=== PATIENT | male | born 1985 | race Caucasian/White ===

== ENCOUNTER 2019-04-21 06:37 | Day surgery (SDC) | payer BC ==
[~2019-04-21 06:37] MED LIST: Lactated Ringers 1,000 ML IV SCH; Sodium Chloride 0.9% 2.5 ML Syringe FLUSH PRN
[2019-04-21] MEDS ORDERED: Propofol 200 MG/20 ML SDV ONE ×2 (07:13→08:37)
[2019-04-21] MEDS ORDERED: fentaNYL 100 MCG/2 ML SDV ONE (07:14)
[2019-04-21] MEDS ORDERED: Ketorolac 30 MG/ML SDV ONE (07:14)
[2019-04-21] MEDS ORDERED: Dexamethasone 4 MG/ML 5 ML MDV ONE (07:14)
[2019-04-21] MEDS ORDERED: Ondansetron 4 MG/2 ML SDV ONE (07:14)
[2019-04-21] MEDS ORDERED: Midazolam 1 MG/ML 2 ML SDV ONE (07:14)
[2019-04-21] MEDS ORDERED: Lidocaine 2% 5 ML SDV ONE (07:14)
--- NOTE | 2019-04-21 07:15 | PCM.PREANE ---
Preanesthetic Assessment - Anesthesia/Transfusion/Family Hx Anesthesia History: No Prior Anesthesia Family History of Anesthesia Reaction: No Transfusion History: No Prior Transfusion(s) Intubation History: Unknown - Review of Systems General: No Symptoms Pulmonary: No Symptoms Cardiovascular: No Symptoms Gastrointestinal: Abdominal Pain Neurological: No Symptoms Other: Reports: None - Physical Assessment Vital Signs: Last Vital Signs Temp 36.6 C 04/21/19 07:01 Pulse 80 04/21/19 07:01 Resp 16 04/21/19 07:01 BP 140/93 H 04/21/19 07:01 Pulse Ox 97 04/21/19 07:01 Height: 5 ft 9 in Weight: 129.274 kg ASA Class: 2 Mental Status: Alert & Oriented x3 Airway Class: Mallampati = 3 Dentition: Reports: Normal Dentition Thyro-Mental Finger Breadths: 3 Mouth Opening Finger Breadths: 3 ROM/Head Extension: Full Lungs: Clear to Auscultation, Normal Respiratory Effort Cardiovascular: Regular Rate, Regular Rhythm - Allergies Allergies/Adverse Reactions: Allergies Allergy/AdvReac Type Severity Reaction Status Date / Time No Known Allergies Allergy Verified 04/18/19 10:21 - Blood Blood Available: No - Anesthesia Plan Pre-Op Medication Ordered: None - Acknowledgements Anesthesia Type Planned: General Anesthesia Pt an Appropriate Candidate for the Planned Anesthesia: Yes Alternatives and Risks of Anesthesia Discussed w Pt/Guardian: Yes Pt/Guardian Understands and Agrees with Anesthesia Plan: Yes PreAnesthesia Questionnaire HEENT History: Reports: Other (See Below) Other HEENT History: wears glasses Other Cardiovascular History: has been hypertensive in the past- no medications Musculoskeletal History: Reports: Back Pain, Chronic, Fracture Other Musculoskeletal History: hx of fx wrist Psychiatric History: Reports: Anxiety Other Psychiatric History: currently not taking any medication Endocrine/Metabolic History: Reports: Obesity/BMI 30+ (BMI 42.1) - SUBSTANCE USE Smoking Status *Q: Never Smoker Days Per Week of Alcohol Use: 5 Number of Drinks Per Day: 2 Total Drinks Per Week: 10 Recreational Drug Use History: No - HOME MEDS Home Medications: Home Meds . [No Known Home Meds] 04/18/19 [History] - CURRENT (IN HOUSE) MEDS Current Meds: Current Medications Lactated Ringer's (Ringers, Lactated) 1,000 mls @ 125 mls/hr IV ASDIRECTED SHARMILA Last Admin: 04/21/19 07:06 Dose: 125 mls/hr Sodium Chloride (Saline Flush) 10 ml FLUSH ASDIRECTED PRN PRN Reason: Keep Vein Open Sodium Chloride (Saline Flush) 2.5 ml FLUSH ASDIRECTED PRN PRN Reason: Keep Vein Open
[2019-04-21] MEDS ORDERED: ePHEDrine 50 MG/ML SDV ONE (09:03)
[2019-04-21] MEDS ORDERED: Lactated Ringers 1,000 ML IV SCH (09:30)
--- NOTE | 2019-04-21 09:32 | PCM.OPNOTE ---
- General Post-Op/Procedure Note Date of Surgery/Procedure: 04/21/19 Operative Procedure(s): Colonoscopy with cecal biopsy and cold transverse colon polypectomy Pre Op Diagnosis: Change in bowel habits. Rectal bleeding. Family history of colon cancer. Post-Op Diagnosis: Cecal angiodysplasia. Transverse colon polyp. Anesthesia Technique: General ET Tube (ASA III) Primary Surgeon: Hamilton Boyce Condition: Good Free Text/Narrative:: DICTATION 620368 CPT CODE 21996
--- NOTE | 2019-04-21 10:10 | PCM.POSTAN ---
POST ANESTHESIA ASSESSMENT - MENTAL STATUS Mental Status: Alert - VITAL SIGNS Vital Signs: Last Vital Signs Temp 36.8 C 04/21/19 09:21 Pulse 83 04/21/19 10:01 Resp 9 L 04/21/19 10:01 BP 115/60 04/21/19 10:01 Pulse Ox 98 04/21/19 10:01 - RESPIRATORY Respiratory Status: Respiratory Rate WNL, Airway Patent, O2 Saturation Stable - CARDIOVASCULAR CV Status: Pulse Rate WNL, Blood Pressure Stable - GASTROINTESTINAL GI Status: No Symptoms - PAIN Pain Score: 2 (Pt reports new onset of L arm pain when raising arm. No obvious injury. Pt states it is only when raising his arm and occurs from the shoulder down. Heart rate/rhythm normal sinus. Will observe as pt progresses through recovery and reassess prior to discharge home.) - POST OP HYDRATION Hydration Status: Adequate & Stable
--- NOTE | 2019-04-21 10:35 | PCM48HPAN ---
Post Anesthesia Note - EVALUATION WITHIN 48HRS OF ANESTHETIC Vital Signs in Normal Range: Yes Patient Participated in Evaluation: Yes Respiratory Function Stable: Yes Airway Patent: Yes Cardiovascular Function Stable: Yes Hydration Status Stable: Yes Pain Control Satisfactory: Yes Nausea and Vomiting Control Satisfactory: Yes Mental Status Recovered: Yes Vital Signs: Last Vital Signs Temp 36.4 C 04/21/19 10:10 Pulse 80 04/21/19 10:30 Resp 16 04/21/19 10:30 BP 124/70 04/21/19 10:30 Pulse Ox 97 04/21/19 10:30 - COMMENTS/OBSERVATIONS Free Text/Narrative:: no anesthesia problems
--- NOTE | 2019-04-21 10:54 | OR ---
SURGEON: Earl Patino M.D. DATE OF PROCEDURE: 04/21/2019 PREOPERATIVE DIAGNOSIS: Microscopic hematuria. POSTOPERATIVE DIAGNOSIS: Microscopic hematuria. OPERATION: Cystoscopy. FINDINGS: Normal cystourethroscopy. DESCRIPTION OF PROCEDURE: The patient was given general anesthesia. He is in dorsal lithotomy position, prepped and draped in sterile drapes. The 22-Thai cystoscope was introduced in the bladder under vision without difficulty. The inside of the bladder was examined, was normal. Efflux from both ureteral orifices was clear. The bladder was emptied. The urethra was visualized on the way out and that was again normal. The patient tolerated the procedure well and was moved to recovery room in good condition. VALENTINO / KATRIN /[id number]
[2019-04-21] MEDS ORDERED: Sodium Chloride 0.9% 10 ML Syringe FLUSH PRN (14:26)
--- NOTE | 2019-04-21 15:53 | OR ---
SURGEON: Hamilton Boyce M.D. DATE OF PROCEDURE: 04/21/2019 OPERATION PERFORMED: Colonoscopy with cecal biopsy and cold proximal transverse colon polypectomy. PRIMARY SURGEON: Hamilton Boyce M.D. ANESTHESIA: General endotracheal ASA CLASSIFICATION: III. PREOPERATIVE DIAGNOSES: 1. Change in bowel habits. 2. Rectal bleeding. 3. Family history of colon cancer. POSTOPERATIVE DIAGNOSES: 1. Mild angiodysplasia of the cecum. 2. Transverse colon polyp. DESCRIPTION OF PROCEDURE: After completing cystoscopy by Dr. Paitno, the patient was positioned in the left lateral decubitus position. The colonoscope was inserted into the rectum and advanced with minimal difficulty to the cecum. The cecum was identified by internal landmarks and external pressure. The colonoscope was retroflexed to visualize the ascending colon from below and then straightened. There was an area that appeared to be a telangectasia or possibly angiodysplasia in the very proximal cecum. This area was biopsied. The colonoscope was slowly withdrawn carefully visualizing the remainder of the ascending colon and hepatic flexure. Again, no tumors or polyps were seen, and no other vascular changes were noted. One small polyp was encountered in the proximal transverse colon and removed with multiple bites of the cold biopsy forceps. The remainder of the transverse colon, splenic flexure, descending colon, sigmoid colon, and rectum were very well visualized. Again, no tumors or polyps were seen. There were no other vascular ectatic changes noted. No diverticular changes were noted. Once the colonoscope was withdrawn to the rectum, it was retroflexed to visualize the anal orifice from above. Again, no tumors or polyps were seen. No acute hemorrhoidal changes were noted. The colonoscope was then straightened, the rectum aspirated, and the colonoscope removed. The patient tolerated the procedure well and was taken to recovery room in stable condition. ANA / KATRIN /[id number]
== END 2019-04-21 11:01 | disposition home or self-care (01) ==
LOC: MW.SDS 06:37
PROVIDERS: ATTEND Surgery
DX: D12.3 Benign neoplasm of transverse colon (principal); K55.20 Angiodysplasia of colon without hemorrhage; R31.29 Other microscopic hematuria; K59.00 Constipation, unspecified; K62.5 Hemorrhage of anus and rectum; F41.9 Anxiety disorder, unspecified; E66.01 Morbid (severe) obesity due to excess calories; Z68.41 Body mass index [BMI] 40.0-44.9, adult
CPT/HCPCS: J0330; J1100; J1885; J2001; J2250; J2405; J2704; J3010; J7120

== ENCOUNTER 2020-07-18 12:42 | Emergency (ER) | payer BC ==
[2020-07-18] MEDS ORDERED: Sodium Chloride 0.9% 1,000 ML IV ONE (12:45)
[2020-07-18] MEDS ORDERED: Sodium Chloride 0.9% 2.5 ML Syringe FLUSH PRN (12:45)
[2020-07-18] MEDS ORDERED: Sodium Chloride 0.9% 10 ML Syringe FLUSH PRN (12:45)
--- NOTE | 2020-07-18 12:46 | EDM.PDOC ---
ED HPI GENERAL MEDICAL PROBLEM - General Chief Complaint: Genitourinary Problem Stated Complaint: BLACK URINE/LOWER BACK PAIN Time Seen by Provider: 07/18/20 12:43 Source of Information: Reports: Patient History Limitations: Reports: No Limitations - History of Present Illness INITIAL COMMENTS - FREE TEXT/NARRATIVE: 34-year-old male no past medical history presents for black urine and back pain. Patient notes that he has had on and off lower back pain right greater than left for the last few years. He has also had hematuria and has been told that he has protein in his urine. Has been followed up by multiple physicians for this and nobody can come up with a definitive diagnosis. He has had CAT scans, cystoscopy, colonoscopy which have all been unremarkable. He has never had a renal stone. Last night he began to experience worsening of his chronic right back pain. This morning noted black-colored urine prompting him to come in for evaluation. Notes mild nausea but no vomiting. No abdominal pain. No fevers. right lower back Pain Score (Numeric/FACES): 5 - Related Data Allergies Allergy/AdvReac Type Severity Reaction Status Date / Time No Known Allergies Allergy Verified 07/18/20 12:53 Home Meds: Home Meds Ibuprofen [Motrin] 600 mg PO Q6H PRN #20 tab 07/18/20 [Rx] Sulfamethoxazole/Trimethoprim [Bactrim Ds Tablet] 1 each PO BID 7 Days #14 tablet 07/18/20 [Rx] lisinopriL [Lisinopril] 5 mg PO DAILY 07/18/20 [History] Past Medical History HEENT History: Reports: Other (See Below) Other HEENT History: wears glasses Other Cardiovascular History: has been hypertensive in the past- no medications Musculoskeletal History: Reports: Back Pain, Chronic, Fracture Other Musculoskeletal History: hx of fx wrist Psychiatric History: Reports: Anxiety Other Psychiatric History: currently not taking any medication Endocrine/Metabolic History: Reports: Obesity/BMI 30+ (BMI 42.1) ED ROS GENERAL - Review of Systems Review Of Systems: Comprehensive ROS is negative, except as noted in HPI. ED EXAM, GENERAL - Physical Exam Exam: See Below Exam Limited By: No Limitations General Appearance: Alert, WD/WN, No Apparent Distress Throat/Mouth: Normal Voice, No Airway Compromise Head: Atraumatic, Normocephalic Neck: Normal Inspection Respiratory/Chest: No Respiratory Distress, Lungs Clear, Normal Breath Sounds, No Accessory Muscle Use Cardiovascular: Normal Peripheral Pulses, Regular Rate, Rhythm GI/Abdominal: Soft, Non-Tender (Male) Exam: Other (no CVA TTP b/l) Extremities: Normal Inspection Neurological: Alert Psychiatric: Normal Affect, Normal Mood Skin Exam: Warm, Dry, Intact, Normal Color Course - Vital Signs Last Recorded V/S: Last Vital Signs Temp 99.1 F 07/18/20 12:49 Pulse 89 07/18/20 12:49 Resp 18 07/18/20 12:49 BP 149/90 H 07/18/20 12:49 Pulse Ox 96 07/18/20 12:49 - Orders/Labs/Meds Orders: Active Orders 24 hr Category Date Time Status MISC TEST Stat Lab 07/18/20 14:00 Received Sodium Chloride 0.9% [Saline Flush] Med 07/18/20 12:45 Active 10 ml FLUSH ASDIRECTED PRN Sodium Chloride 0.9% [Saline Flush] Med 07/18/20 12:45 Active 2.5 ml FLUSH ASDIRECTED PRN Saline Lock Insert [OM.PC] Stat Oth 07/18/20 12:45 Ordered Medication Orders Sodium Chloride (Saline Flush) 10 ml FLUSH ASDIRECTED PRN PRN Reason: Keep Vein Open Last Admin: 07/18/20 13:01 Dose: 10 ml Documented by: AYLA Sodium Chloride (Saline Flush) 2.5 ml FLUSH ASDIRECTED PRN PRN Reason: Keep Vein Open Last Admin: 07/18/20 13:01 Dose: 2.5 ml Documented by: AYLA Labs: Laboratory Tests 07/18/20 07/18/20 07/18/20 Range/Units 12:56 12:56 12:58 WBC 4.98 (4.0-11.0) K/uL RBC 5.02 (4.50-5.90) M/uL Hgb 15.8 (13.0-17.0) g/dL Hct 46.7 (38.0-50.0) % MCV 93.0 (80.0-98.0) fL MCH 31.5 (27.0-32.0) pg MCHC 33.8 (31.0-37.0) g/dL RDW Std Deviation 45.7 (28.0-62.0) fl RDW Coeff of Mitra 14 (11.0-15.0) % Plt Count 155 (150-400) K/uL MPV 9.90 (7.40-12.00) fL Neut % (Auto) 65.8 (48.0-80.0) % Lymph % (Auto) 20.3 (16.0-40.0) % [place] % (Auto) 13.1 (0.0-15.0) % Eos % (Auto) 0.4 (0.0-7.0) % Baso % (Auto) 0.4 (0.0-1.5) % Neut # (Auto) 3.3 (1.4-5.7) K/uL Lymph # (Auto) 1.0 (0.6-2.4) K/uL [place] # (Auto) 0.7 (0.0-0.8) K/uL Eos # (Auto) 0.0 (0.0-0.7) K/uL Baso # (Auto) 0.0 (0.0-0.1) K/uL Nucleated RBC % 0.0 /100WBC Nucleated RBCs # 0 K/uL Sodium 138 (136-148) mmol/L Potassium 3.9 (3.5-5.1) mmol/L Chloride 103 (98-107) mmol/L Carbon Dioxide 26.8 (21.0-32.0) mmol/L BUN 13 (7.0-18.0) mg/dL Creatinine 1.2 (0.8-1.3) mg/dL Est Cr Clr Drug Dosing 86.74 mL/min Estimated GFR (MDRD) > 60.0 ml/min Glucose 97 (74-106) mg/dL Calcium 8.7 (8.5-10.1) mg/dL Total Bilirubin 2.1 H (0.2-1.0) mg/dL AST 39 H (15-37) IU/L ALT 79 H (14-63) IU/L Alkaline Phosphatase 106 (46-116) U/L Creatine Kinase 129 (26-308) U/L Total Protein 7.8 (6.4-8.2) g/dL Albumin 4.1 (3.4-5.0) g/dL Globulin 3.7 (2.6-4.0) g/dL Albumin/Globulin Ratio 1.1 (0.9-1.6) Urine Color BROWN Urine Appearance SLT CLOUDY Urine pH 6.5 (5.0-8.0) Ur Specific Orient 1.025 (1.001-1.035) Urine Protein 100 H (NEGATIVE) mg/dL Urine Glucose (UA) NEGATIVE (NEGATIVE) mg/dL Urine Ketones TRACE H (NEGATIVE) mg/dL Urine Occult Blood LARGE H (NEGATIVE) Urine Nitrite POSITIVE H (NEGATIVE) Urine Bilirubin MODERATE H (NEGATIVE) Urine Ictotest NEGATIVE Urine Urobilinogen >=8.0 H (<2.0) EU/dL Ur Leukocyte Esterase TRACE H (NEGATIVE) Urine RBC TOO NUMEROUS TO CT (0-2/HPF) Urine WBC 0-4 (0-5/HPF) Ur Epithelial Cells RARE (NONE-FEW) Urine Bacteria 3+ H (NEGATIVE) Meds: Medications Generic Name Dose Route Start Last Admin Trade Name Freq PRN Reason Stop Dose Admin Sodium Chloride 10 ml 07/18/20 12:45 07/18/20 13:01 Saline Flush FLUSH 10 ml ASDIRECTED PRN Administration Keep Vein Open Sodium Chloride 2.5 ml 07/18/20 12:45 07/18/20 13:01 Saline Flush FLUSH 2.5 ml ASDIRECTED PRN Administration Keep Vein Open Discontinued Medications Generic Name Dose Route Start Last Admin Trade Name Freq PRN Reason Stop Dose Admin Sodium Chloride 1,000 mls @ 999 mls/hr 07/18/20 12:45 07/18/20 13:01 Normal Saline IV 07/18/20 13:45 999 mls/hr .Bolus ONE Administration - Re-Assessments/Exams Free Text/Narrative Re-Assessment/Exam: 07/18/20 13:14 We will get basic labs including renal function, total CPK, CBC, urinalysis. Will get CT abdomen pelvis without contrast to evaluate for renal stone. Patient has had extensive work-up for these issues without definitive diagnosis. We will send a random urinary porphobilinogen to screen for porphyria. This will not be back today as this is a send out lab. This was discussed with the patient. 07/18/20 14:21 CT imaging is unremarkable for acute pathology. UA with blood, urobilinogen, protein, nitrites, leukocyte esterase, +4 bacteria, 0-4 wbc. Will give rx for antibiotic although unclear etiology of symptoms. Benefits outweighs risks. Patient needs to f/u with nephro vs uro. Departure - Departure Time of Disposition: 14:07 Disposition: Home, Self-Care 01 Condition: Good Clinical Impression: Bacteria in urine Proteinuria Qualifiers: Proteinuria type: unspecified Qualified Code(s): R80.9 - Proteinuria, unspecified Hematuria Qualifiers: Hematuria type: unspecified type Qualified Code(s): R31.9 - Hematuria, unspecified - Discharge Information Prescriptions: Sulfamethoxazole/Trimethoprim [Bactrim Ds Tablet] 1 each PO BID 7 Days #14 tablet Ibuprofen [Motrin] 600 mg PO Q6H PRN #20 tab PRN Reason: Pain Instructions: Hematuria, Adult, Proteinuria Referrals: PCP,Not In Area [Primary Care Provider] - Forms: ED Department Discharge Additional Instructions: Your labs are grossly unremarkable however there are some abnormalities. Are attached your discharge paperwork and the abnormal lab values are highlighted. I would recommend to follow-up with a instrument person or urologist for further diagnosis. We don't have any nephrologists in [place], but there is one in [place]. We have also sent your urine for a special send out test and these results will be available probably within a week or so. The rest of your work-up does not reveal evidence surgical pathology or kidney failure. There was bacteria in your urine, so antibiotics were sent in, although I cannot attribute all of your symptoms to a simple urinary tract infection. Pain medicine was sent to your pharmacy. Urologist: [facility] [address] [place] [id number] The following information is given to patients seen in the emergency department who are being discharged to home. This information is to outline your options for follow-up care. We provide all patients seen in our emergency department with a follow-up referral. The need for follow-up, as well as the timing and circumstances, are variable depending upon the specifics of your emergency department visit. If you don't have a primary care physician on staff, we will provide you with a referral. We always advise you to contact your personal physician following an emergency department visit to inform them of the circumstance of the visit and for follow-up with them and/or the need for any referrals to a consulting specialist. The emergency department will also refer you to a specialist when appropriate. This referral assures that you have the opportunity for follow-up care with a specialist. All of these measure are taken in an effort to provide you with optimal care, which includes your follow-up. Under all circumstances we always encourage you to contact your private physician who remains a resource for coordinating your care. When calling for follow-up care, please make the office aware that this follow-up is from your recent emergency room visit. If for any reason you are refused follow-up, please contact the [facility] Emergency Department at and asked to speak to the emergency department charge nurse. Please follow up with your primary care physician. If you do not have a primary care physician, see below: [facility] [address] [place] [id number] [facility] [address] [place] [id number] [facility] [address] [place] [id number] Sepsis Event Note (ED) - Focused Exam Vital Signs: Vital Signs Temp Pulse Resp BP Pulse Ox 07/18/20 12:49 99.1 F 89 18 149/90 H 96 - My Orders Last 24 Hours: My Active Orders 07/18/20 12:45 Sodium Chloride 0.9% [Saline Flush] 10 ml FLUSH ASDIRECTED PRN Sodium Chloride 0.9% [Saline Flush] 2.5 ml FLUSH ASDIRECTED PRN Saline Lock Insert [OM.PC] Stat 07/18/20 14:00 MISC TEST Stat - Assessment/Plan Last 24 Hours: My Active Orders 07/18/20 12:45 Sodium Chloride 0.9% [Saline Flush] 10 ml FLUSH ASDIRECTED PRN Sodium Chloride 0.9% [Saline Flush] 2.5 ml FLUSH ASDIRECTED PRN Saline Lock Insert [OM.PC] Stat 07/18/20 14:00 MISC TEST Stat
[2020-07-18 13:44] LABS: BLOOD UREA NITROGEN,BUN 13 mg/dL (7.0-18.0); CARBON DIOXIDE,CO2 26.8 mmol/L (21.0-32.0); CHLORIDE,CL 103 mmol/L (98-107); GLUCOSE RANDOM 97 mg/dL (74-106); POTASSIUM,K 3.9 mmol/L (3.5-5.1); SODIUM,NA 138 mmol/L (136-148)
--- NOTE | 2020-07-18 14:16 | CT ---
Indication: Right flank pain and gross hematuria Technique: Volumetric multidetector CT images of the abdomen and pelvis were without the administration of intravenous contrast. Comparison: CT abdomen and pelvis October 30, 2018 Findings: The lung bases are clear. There is hepatic steatosis and hepatomegaly. The gallbladder is unremarkable without evidence of radiopaque calculus. There is no significant common biliary ductal dilatation or abrupt cut off. There is mild to moderate splenomegaly with spleen measuring up to 15 centimeters. There is no evidence of focal abnormality. The stomach and duodenum are grossly unremarkable. The pancreas is normal in attenuation without significant atrophy. The adrenal glands are unremarkable. There is no evidence of radiopaque calculus or hydronephrosis. There is a moderate to severe amount of stool seen throughout the colon predominantly within the rectum. The appendix is unremarkable. There is no significant mesenteric, retroperitoneal, or pelvic sidewall lymph nodes. The aorta is nonaneurysmal. There is no significant atherosclerotic disease appreciated. The solid pelvic viscera are grossly unremarkable. There is no free fluid or free air. The anterior abdominal wall is intact without significant hernias. Minimal endplate Schmorl`s defects of the partially visualized lower thoracic vertebral bodies are appreciated. Otherwise, there is preserved vertebral body heights. There is no evidence of displaced fracture. Impression: No evidence of radiopaque calculus or obstructive uropathy. Mild hepatosplenomegaly and hepatic steatosis. Please note that all CT scans at this facility use dose modulation, iterative reconstruction, and/or weight-based dosing when appropriate to reduce radiation dose to as low as reasonably achievable. Dictated by Angelito Lay MD @ Jul 18 2020 2:06PM Signed by Dr. Angelito Lay @ Jul 18 2020 2:15PM
== END 2020-07-18 14:49 | disposition home or self-care (01) ==
LOC: MW.ED 12:42
DX: R31.9 Hematuria, unspecified (principal); R80.9 Proteinuria, unspecified; R82.71 Bacteriuria; I10 Essential (primary) hypertension; E66.9 Obesity, unspecified; Z68.41 Body mass index [BMI] 40.0-44.9, adult; Z79.899 Other long term (current) drug therapy
CPT/HCPCS: 36415; 74176; 80053; 81001; 82550; 85025; 99284; J7030; 99283

== ENCOUNTER 2023-12-27 08:35 | Emergency (ER) | payer BC ==
[2023-12-27] MEDS ORDERED: Ondansetron 4 MG/2 ML SDV IVPUSH ONE (09:14)
[2023-12-27 09:29] LABS: BASOPHILS ABSOLUTE AUTO 0.02 K/uL (0.00-0.20); BASOPHILS PERCENT AUTO 0.3 % (0.0-1.0); EOSINOPHILS ABSOLUTE AUTO 0.03 K/uL (0.00-0.45); EOSINOPHILS PERCENT AUTO 0.4 % (0.0-6.0); HEMATOCRIT 48.5 % (42.0-52.0); HEMOGLOBIN 17.2 g/dL (14.0-18.0); IMMATURE GRAN ABSOLUTE AUTO 0.03 K/uL (0.00-0.05); IMMATURE GRAN PERCENT AUTO 0.4 % (0.0-0.4); LYMPHOCYTES ABSOLUTE AUTO 1.73 K/uL (1.00-4.80); LYMPHOCYTES PERCENT AUTO 23.2 % (24.0-44.0); MEAN CORPUSCULAR HEMOGLOBIN 32.1 pg (28.0-32.0); MEAN CORPUSCULAR HGB CONC 35.5 g/dL (32.0-36.0); MEAN CORPUSCULAR VOLUME 90.7 fL (83.0-99.0); MEAN PLATELET VOLUME 9.4 fL (9.4-12.4); MONOCYTES ABSOLUTE AUTO 0.58 K/uL (0.00-0.80); MONOCYTES PERCENT AUTO 7.8 % (0.0-8.0); NEUTROPHILS ABSOLUTE AUTO 5.06 K/uL (1.80-7.70); NEUTROPHILS PERCENT AUTO 67.9 % (41.0-71.0); PLATELET COUNT,PLT 199 K/uL (150-400); RED BLOOD CELL COUNT 5.35 M/uL (4.52-5.90); WHITE BLOOD CELL COUNT,WBC 7.45 K/uL (3.9-11.3)
[2023-12-27 09:53] LABS: A/G RATIO 1.2 (0.9-1.6); ALBUMIN 3.9 g/dL (3.4-5.0); BILIRUBIN TOTAL 1.4 mg/dL (0.2-1.0); C-REACTIVE PROTEIN 0.59 mg/dL (<0.3); CALCIUM 8.6 mg/dL (8.5-10.1); CARBON DIOXIDE,CO2 28.4 mmol/L (21.0-32.0); CREATININE 1.1 mg/dL (0.8-1.3); EST CRCL DRUG DOSING (CG) 91.05 mL/min; POTASSIUM,K 4.1 mmol/L (3.5-5.1); PROTEIN TOTAL,TP 7.2 g/dL (6.4-8.2); URIC ACID 6.4 mg/dL (2.6-7.2)
[2023-12-27] MEDS: oxyCODONE 5 MG Tab PO ONE (09:56)
[2023-12-27] MEDS: Ondansetron 4 MG Tab.DIS PO STA (09:56)
[2023-12-27] MEDS: Lidocaine 4% 1 each Patch TOP ONE (09:56)
[2023-12-27] MEDS: predniSONE 20 MG Tab PO ONE (10:30)
== END 2023-12-27 10:32 | disposition home or self-care (01) ==
LOC: MW.ED 08:35
DX: M10.9 Gout, unspecified (principal); I10 Essential (primary) hypertension; E66.9 Obesity, unspecified; Z79.899 Other long term (current) drug therapy; Z68.41 Body mass index [BMI] 40.0-44.9, adult
CPT/HCPCS: 36415; 73562; 80053; 84550; 85025; 85652; 86140; 99283; A9270